=== PATIENT | male | born 2000 | race Caucasian/White ===

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

== ENCOUNTER 2020-02-10 06:37 | Emergency (ER) | payer MEDICAID ==
[2013-05-27 20:45] VITALS: BP 124/82
[2020-02-10] MEDS ORDERED: DUONEB 0.5-3 MG/3 ml Neb IH ONE ×6 (06:49→07:27)
--- NOTE | 2020-02-10 07:13 | ERPHSYRPT ---
- History of Present Illness Time Seen by Provider: 02/10/20 07:10 Source: patient Exam Limitations: no limitations Patient Subjective Stated Complaint: pt states, "I was short of breath last night and coughing. I finally got situated and was able to sleep. I woke up this morning with sob, tried my inhalers and nebulizers but they did not help". Triage Nursing Assessment: pt c/o sob and coughing. Pt has exp wheezes anteriorly and sounds tight anterior and posterior. Pt states, "the sob started last night but got better but he woke up this morning feeling sob and coughing. Pt took both his inhalers and a neb tx with no improvement. pt states he coughed up some blood this morning. Physician History: pt states, "I was short of breath last night and coughing. I finally got situated and was able to sleep. I woke up this morning with sob, tried my inhalers and nebulizers but they did not help". no fever. Timing/Duration: yesterday Activities at Onset: none Severity of Dyspnea-Max: moderate Severity of Dyspnea-Current: moderate Possible Cause: occasional episodes Modifying Factors: Improves With: albuterol nebulizer Associated Symptoms: cough Allergies/Adverse Reactions: No Known Drug Allergies Allergy (Verified 02/10/20 06:53) STATES HE HAS TROUBLE WITH PAIN MEDICINE. MOTHER ADVISES THAT HE NEEDS BENADRYL BEFORE ADMINISTRATION OF ANY PAIN MEDICINE. Home Medications: Albuterol 2.5 mg/3 ml Neb [Proventil 2.5 mg/3 ml Neb] 2 puffs NEB Q4- 6HPRN PRN 02/10/20 [History] Albuterol Sulfate [Proair Hfa] 2 puff IH Q4-6HPRN PRN 02/10/20 [History] Albuterol Sulfate [Ventolin Hfa] 1 neb NEBULIZE Q6HPRN PRN 02/10/20 [History] Omeprazole 20 mg PO DAILY PRN PRN 02/10/20 [History] Hx Tetanus, Diphtheria Vaccination/Date Given: Yes Hx Influenza Vaccination/Date Given: No Hx Pneumococcal Vaccination/Date Given: No Immunizations Up to Date: Yes Travel Risk - International Travel Have you traveled outside of the country in past 3 weeks: No Have you or anyone close to you been diagnosed with or: No Do your reside in a community with a known COVID-19 case?: Yes If Yes where:: [place] - Coronavirus Screening Has patient experienced Coronavirus symptoms: Yes Symptoms experienced: respiratory symptoms (i.e.Cought,shortness of breath) Date of respiratory symptoms onset:: 02/09/20 - Review of Systems Constitutional: No Fever, No Chills Eyes: No Symptoms Ears, Nose, & Throat: No Symptoms Respiratory: Cough, Dyspnea, Wheezing Cardiac: No Chest Pain, No Edema, No Syncope Abdominal/Gastrointestinal: No Abdominal Pain, No Nausea, No Vomiting, No Diarrhea Genitourinary Symptoms: No Dysuria Musculoskeletal: No Back Pain, No Neck Pain Skin: No Rash Neurological: No Dizziness, No Focal Weakness, No Sensory Changes Psychological: No Symptoms Endocrine: No Symptoms All Other Systems: Reviewed and Negative - Past Medical History Pertinent Past Medical History: Yes Neurological History: No Pertinent History ENT History: No Pertinent History Cardiac History: No Pertinent History Respiratory History: Asthma, Bronchitis Endocrine Medical History: No Pertinent History Musculoskeletal History: No Pertinent History GI Medical History: GERD History: No Pertinent History Psycho-Social History: Depression Male Reproductive Disorders: No Pertinent History - Past Surgical History Past Surgical History: Yes Neuro Surgical History: No Pertinent History Cardiac: No Pertinent History Respiratory: No Pertinent History Gastrointestinal: Hernia Repair Genitourinary: No Pertinent History Musculoskeletal: No Pertinent History Male Surgical History: Other Other Surgical History: hernia repair - Social History Smoking Status: Current every day smoker How long have you smoked: 2 yrs Exposure to second hand smoke: Yes Drug Use: none Patient Lives Alone: No - Nursing Vital Signs Nursing Vital Signs: Initial Vital Signs Temperature 98.0 F 02/10/20 06:38 Pulse Rate 111 H 02/10/20 06:38 Respiratory Rate 19 02/10/20 06:38 Blood Pressure 152/103 02/10/20 06:38 O2 Sat by Pulse Oximetry 95 02/10/20 06:38 Pain Scale Pain Intensity 5 - Physical Exam General Appearance: no apparent distress, alert Eye Exam: PERRL/EOMI Neck Exam: normal inspection, supple Respiratory Exam: normal breath sounds Cardiovascular/Chest Exam: normal heart sounds, regular rate/rhythm Abdominal/Gastrointestinal Exam: soft, No tenderness, No distention, No mass Extremity Exam: non-tender, normal range of motion, normal inspection, no calf tenderness, no pedal edema Neurologic Exam: alert, oriented x 3, cooperative, family reunification specialist II-XII nml as tested, sensation nml, No motor deficits Skin Exam: normal color, warm, No dry SpO2 Interpretation: normal SpO2: 95 - Course Nursing assessment & vital signs reviewed: Yes - Radiology Exams Chest X-ray Interpretation: Reviewed by me, Negative Ordered Tests: Active Orders 24 hr Category Date Time Status Isolation, Initiate & Maintain Q4H Care 02/10/20 06:53 Active CHEST 1 VIEW (PORTABLE) Stat Exams 02/10/20 07:08 Taken CBC W DIFF Stat Lab 02/10/20 06:50 Completed CMP Stat Lab 02/10/20 06:49 Completed Respiratory Therapy Assessment DAILY RT 02/10/20 07:15 Completed Medication Summary Discontinued Medications Generic Name Dose Route Start Last Admin Trade Name Freq PRN Reason Stop Dose Admin Albuterol/Ipratropium 3 ml 02/10/20 06:49 02/10/20 07:15 Duoneb 0.5-3 Mg/3 Ml Neb IH 02/10/20 06:50 3 ml STAT ONE Administration Albuterol/Ipratropium Confirm 02/10/20 06:59 Duoneb 0.5-3 Mg/3 Ml Neb Administered 02/10/20 07:00 Dose 3 ml IH .STK-MED ONE Albuterol/Ipratropium Confirm 02/10/20 07:08 Duoneb 0.5-3 Mg/3 Ml Neb Administered 02/10/20 07:09 Dose 3 ml IH .STK-MED ONE Albuterol/Ipratropium Confirm 02/10/20 07:08 Duoneb 0.5-3 Mg/3 Ml Neb Administered 02/10/20 07:09 Dose 3 ml IH .STK-MED ONE Albuterol/Ipratropium 3 ml 02/10/20 07:07 Duoneb 0.5-3 Mg/3 Ml Neb IH 02/10/20 07:08 STAT ONE Lab/Rad Data: Laboratory Result Diagrams 02/10/20 06:50 02/10/20 06:49 Laboratory Results 02/10/20 02/10/20 Range/Units 06:50 06:49 WBC 9.1 (4.0-10.5) K/mm3 RBC 4.91 (4.1-5.6) M/mm3 Hgb 15.1 (12.5-18.0) gm/dl Hct 43.9 (42-50) % MCV 89.4 (78-100) fl MCH 30.8 (26-32) pg MCHC 34.4 (32-36) g/dl RDW 12.5 (11.5-14.0) % Plt Count 272 (150-450) K/mm3 MPV 9.5 (7.5-11.0) fl Gran % 64.5 (36.0-66.0) % Eos # (Auto) 0.43 (0-0.5) Absolute Lymphs (auto) 1.96 (1.0-4.6) Absolute Monos (auto) 0.83 (0.0-1.3) Lymphocytes % 21.5 L (24.0-44.0) % Monocytes % 9.1 (0.0-12.0) % Eosinophils % 4.7 (0.00-5.0) % Basophils % 0.2 (0.0-0.4) % Absolute Granulocytes 5.87 (1.4-6.9) Basophils # 0.02 (0-0.4) Sodium 143 (137-145) mmol/L Potassium 3.8 (3.5-5.1) mmol/L Chloride 106 (98-107) mmol/L Carbon Dioxide 29 (22-30) mmol/L Anion Gap 11.2 (5-15) MEQ/L BUN 14 (9-20) mg/dL Creatinine 0.96 (0.66-1.25) mg/dL Estimated GFR > 60.0 ML/MIN Glucose 98 (74-106) mg/dL Calcium 9.1 (8.4-10.2) mg/dL Total Bilirubin 0.80 (0.2-1.3) mg/dL AST 27 (17-59) U/L ALT 43 (0-50) U/L Alkaline Phosphatase 77 (38-126) U/L Serum Total Protein 7.3 (6.3-8.2) g/dL Albumin 4.5 (3.5-5.0) g/dL - Progress Progress: improved Air Movement: good Blood Culture(s) Obtained: No Antibiotics given: No Counseled pt/family regarding: lab results, diagnosis, need for follow-up, rad results - Departure Departure Disposition: Home Clinical Impression: Acute asthma exacerbation Qualifiers: Asthma severity: mild Asthma persistence: intermittent Qualified Code(s): J45.21 - Mild intermittent asthma with (acute) exacerbation Condition: Stable Critical Care Time: Yes Critical Care Time(excluding separately billable procedures): Critical 30-74 mins Referrals: AWA RODRIGUEZ MD [Primary Care Provider] - Instructions: Asthma, Adult (DC) Additional Instructions: Discharge/Care Plan CANDE HUERTA was seen on 02/10/20 in the Emergency Room. The patient was counseled regarding Diagnosis,Lab results, Imaging studies, need for follow up and when to return to the Emergency Room. Prescriptions given: Discharge Note I have spoken with the patient and/or caregivers. I have explained the patient' s condition, diagnosis and treatment plan based on the information available to me at this time. I have answered the patient's and/or caregiver's questions and addressed any concerns. The patient and/or caregivers have as good understanding of the patient's diagnosis, condition and treatment plan as can be expected at this point. The vital signs have been stable. The patient's condition is stable and appropriate for discharge from the emergency department. The patient will pursue further outpatient evaluation with the primary care physician or other designated or consulting physician as outlined in the discharge instructions. The patient and/or caregivers are agreeable to this plan of care and follow-up instructions have been explained in detail. The patient and/or caregivers have received these instruction. The patient/and or caregivers are aware that any significant change in condition or worsening of symptoms should prompt an immediate return to this or the closest emergency department or call 911. CANDE HUERTA was seen on 02/10/20 n the Emergency Room. At that time you were treated for an emergent condition, during your visit Laboratory, Radiology and/or other procedures may have been ordered. It is very important that you follow-up with your Primary Care Physician AWA RODRIGUEZ within the next 24- 48 hours to review your Emergency Room visit and the final results of testing that was ordered. Some test results such as Urine Cultures, Blood Cultures, and other cultures if ordered will not be finalized for 24-48 hours. If you do not have a Primary Care Provider please call the medical records department at [phone] ext [phone] to obtain a copy of your results or you may sign into our patient portal to obtain these results by visiting us @ [email or web address] and completing the following steps: 1. Click on the Patient Portal link 2. Click the Patient Self Enrollment Link to complete the enrollment form and entering your 3. Once the enrollment form is completed you will receive an email with a temporary ID and password at the email address you provided. 4. Next choose a user name and password. Your user name must be at least 4 characters long and your password must be at least 4 characters long. 5. Choose a security question from the list and provide your answer to the question. If you already have signed into the Health Portal you may access your Health Care Information 26/04 by the following steps: 1. Login to our website @ [email or web address] 2. Enter your original user name and password. FAQS The [facility] Health Portal is an online tool that contains your Lab Results, Radiology Reports, Visit History, Discharge Instructions and Health Summary Lab and Radiology Results will not be available for 72 hours on the portal. The Portal is a secure site, passwords are encryted and URLs are re-written so they cannot be copied and pasted. You and authorized family members are the only ones who can access your Portal. Also there is a timeout feature that protects your information if you leave the Portal page open. If you have technical difficulty please use the Contact Us link on the page this will allow you to submit any questions you have regarding the Portal or you may contact the Medical Record Department at [phone]. Prescriptions: Albuterol/Ipratropium 3ml Neb* [DUONEB 0.5-3 MG/3 ml Neb] 3 ml IH QID #60 ampul.neb Cephalexin Mh 500 mg [Keflex 500 mg] 500 mg PO Q6H #40 capsule Methylprednisolone Packet [Medrol Dosepack] 4 mg PO UD #21 packet
[2020-02-10 07:14] LABS: Absolute Neutrophil Ct (ANC) 5.87 (1.4-6.9); BASOPHIL % 0.2 % (0.0-0.4); Basophil (Absolute #) 0.02 (0-0.4); Eosinophil % 4.7 % (0.00-5.0); Eosinophil (Absolute #) 0.43 (0-0.5); Hematocrit 43.9 % (42-50); Hemoglobin 15.1 gm/dl (12.5-18.0); Lymphocyte (Absolute #) 1.96 (1.0-4.6); Lymphocytes % 21.5 % (24.0-44.0); Mean Cell Volume 89.4 fl (78-100); Mean Corpuscular Hemoglobin 30.8 pg (26-32); Mean Corpuscular Hgb Concent. 34.4 g/dl (32-36); Mean Platelet Volume 9.5 fl (7.5-11.0); Monocyte (Absolute #) 0.83 (0.0-1.3); Monocytes % 9.1 % (0.0-12.0); Neutrophil % 64.5 % (36.0-66.0); Platelet Count 272 K/mm3 (150-450); Red Blood Count 4.91 M/mm3 (4.1-5.6); Red Cell Distribution Width 12.5 % (11.5-14.0); White Blood Count 9.1 K/mm3 (4.0-10.5)
[2020-02-10 07:19] LABS: ALBUMIN 4.5 g/dL (3.5-5.0); ALKALINE PHOSPHATASE 77 U/L (38-126); ANION GAP 11.2 MEQ/L (5-15); BLOOD UREA NITROGEN 14 mg/dL (9-20); CHLORIDE 106 mmol/L (98-107); Calcium 9.1 mg/dL (8.4-10.2); Carbon Dioxide 29 mmol/L (22-30); Creatinine 1 0.96 mg/dL (0.66-1.25); Glucose 98 mg/dL (74-106); Potassium 3.8 mmol/L (3.5-5.1); SGOT/AST 27 U/L (17-59); SGPT/ALT 43 U/L (0-50); SODIUM 143 mmol/L (137-145); Total Protein 7.3 g/dL (6.3-8.2)
[2020-02-10 07:49] VITALS: BP 181/98; PULSE 103; O2SAT 98
--- NOTE | 2020-02-10 09:24 | XRAY ---
Indication: Short of breath. Asthma. Comparison: November 22, 2016. Portable chest demonstrates normal heart, lungs, and bony thorax.
== END 2020-02-10 07:46 | disposition home or self-care (01) ==
LOC: ED 06:37
DX: J45.21 Mild intermittent asthma with (acute) exacerbation (principal); K21.9 Gastro-esophageal reflux disease without esophagitis; F32.9 Major depressive disorder, single episode, unspecified; Z72.0 Tobacco use; Z79.899 Other long term (current) drug therapy
CPT/HCPCS: 36000; 36415; 71045; 80053; 85025; 93005; 94640; 99284; 99291; A9270-GY

== ENCOUNTER 2020-02-10 11:35 | Observation (INO) | payer MEDICAID, OTHER ==
[2020-02-10] MEDS ORDERED: Ativan 2 MG/1 ML VIAL IV PRN (11:40)
[2020-02-10] MEDS ORDERED: solu-MEDROL 40 MG IV SCH (11:45)
[2020-02-10] MEDS ORDERED: DUONEB 0.5-3 MG/3 ml Neb IH ONE (11:45)
--- NOTE | 2020-02-10 11:49 | ERPHSYRPT ---
- History of Present Illness Time Seen by Provider: 02/10/20 11:44 Source: patient Patient Subjective Stated Complaint: 20-year-old male with history of asthma came to the emergency room with shortness of breath. Patient was seen in the emergency room 4 hours ago and was sent home with nebulizer treatment and antibiotic but patient has another episode of severe shortness of breath so she came to the emergency room Physician History: 20-year-old male with history of asthma came to the emergency room with shortness of breath. Patient was seen in the emergency room 4 hours ago and was sent home with nebulizer treatment and antibiotic but patient has another episode of severe shortness of breath so she came to the emergency room Timing/Duration: today Activities at Onset: emotional stress Severity of Dyspnea-Max: moderate Severity of Dyspnea-Current: moderate Possible Cause: frequent episodes Associated Symptoms: wheezing Allergies/Adverse Reactions: No Known Drug Allergies Allergy (Verified 02/10/20 11:38) STATES HE HAS TROUBLE WITH PAIN MEDICINE. MOTHER ADVISES THAT HE NEEDS BENADRYL BEFORE ADMINISTRATION OF ANY PAIN MEDICINE. Home Medications: Albuterol 2.5 mg/3 ml Neb [Proventil 2.5 mg/3 ml Neb] 2 puffs NEB Q4- 6HPRN PRN 02/10/20 [History] Albuterol Sulfate [Proair Hfa] 2 puff IH Q4-6HPRN PRN 02/10/20 [History] Albuterol Sulfate [Ventolin Hfa] 1 neb NEBULIZE Q6HPRN PRN 02/10/20 [History] Omeprazole 20 mg PO DAILY PRN PRN 02/10/20 [History] Hx Tetanus, Diphtheria Vaccination/Date Given: Yes Hx Influenza Vaccination/Date Given: No Hx Pneumococcal Vaccination/Date Given: No Travel Risk - International Travel Have you traveled outside of the country in past 3 weeks: No Have you or anyone close to you been diagnosed with or: No Do your reside in a community with a known COVID-19 case?: Yes - Coronavirus Screening Has patient experienced Coronavirus symptoms: No - Review of Systems Constitutional: No Fever, No Chills Eyes: No Symptoms Ears, Nose, & Throat: No Symptoms Respiratory: Dyspnea, Wheezing, No Cough Cardiac: No Chest Pain, No Edema, No Syncope Abdominal/Gastrointestinal: No Abdominal Pain, No Nausea, No Vomiting, No Diarrhea Genitourinary Symptoms: No Dysuria Musculoskeletal: No Back Pain, No Neck Pain Skin: No Rash Neurological: No Dizziness, No Focal Weakness, No Sensory Changes Psychological: No Symptoms Endocrine: No Symptoms All Other Systems: Reviewed and Negative - Past Medical History Pertinent Past Medical History: Yes Neurological History: No Pertinent History ENT History: No Pertinent History Cardiac History: No Pertinent History Respiratory History: Asthma, Bronchitis Endocrine Medical History: No Pertinent History Musculoskeletal History: No Pertinent History GI Medical History: GERD History: No Pertinent History Psycho-Social History: Depression Male Reproductive Disorders: No Pertinent History - Past Surgical History Past Surgical History: Yes Neuro Surgical History: No Pertinent History Cardiac: No Pertinent History Respiratory: No Pertinent History Gastrointestinal: Hernia Repair Genitourinary: No Pertinent History Musculoskeletal: No Pertinent History Male Surgical History: Other Other Surgical History: hernia repair - Social History Smoking Status: Current every day smoker How long have you smoked: 2 yrs Exposure to second hand smoke: Yes Drug Use: none Patient Lives Alone: No - Physical Exam General Appearance: no apparent distress, alert Eye Exam: PERRL/EOMI Neck Exam: normal inspection, supple Respiratory Exam: wheezing Cardiovascular/Chest Exam: normal heart sounds, regular rate/rhythm Abdominal/Gastrointestinal Exam: soft, No tenderness, No distention, No mass Extremity Exam: non-tender, normal range of motion, normal inspection, no calf tenderness, no pedal edema Neurologic Exam: alert, oriented x 3, cooperative, zinc plate grainer II-XII nml as tested, sensation nml, No motor deficits Skin Exam: normal color, warm, No dry SpO2 Interpretation: normal - Course Nursing assessment & vital signs reviewed: Yes Ordered Tests: Active Orders 24 hr Category Date Time Status Up Ad Adri TOLERATED Activity 02/10/20 11:[address] in Observation ROUTINE Care 02/10/20 11:40 Active Regular Diet Diet 02/10/20 Dinner Active CBC W DIFF AM.LAB Lab 02/11/20 04:00 Ordered CMP AM.LAB Lab 02/11/20 04:00 Ordered Oxygen Nasal Cannula 2 lpm RT 02/10/20 11:40 Active Respiratory Therapy Consult ROUTINE RT 02/10/20 11:40 Active - Progress Progress: unchanged Air Movement: poor Blood Culture(s) Obtained: No Antibiotics given: No Discussed with DrRuth Ann: T.Means, D.Nereida Will see patient in: hospital (observation) Counseled pt/family regarding: lab results, diagnosis, need for follow-up, rad results - Departure Departure Disposition: Observation Clinical Impression: Acute asthma exacerbation Qualifiers: Asthma severity: moderate Asthma persistence: unspecified Qualified Code(s): J45.901 - Unspecified asthma with (acute) exacerbation Condition: Fair Critical Care Time: Yes Critical Care Time(excluding separately billable procedures): Critical 30-74 mins Referrals: AWA RODRIGUEZ MD [Primary Care Provider] - Instructions: Asthma, Adult (DC)
[2020-02-10] MEDS: DUONEB 0.5-3 MG/3 ml Neb IH SCH ×2 (11:51→18:18)
[2020-02-10] MEDS ORDERED: Zithromax 500 MG/ 250 ML NaCl Premix 500 MG/250 ML IVPB IV ONE (11:53)
[2020-02-10] MEDS ORDERED: solu-MEDROL 125 MG ONE (11:53)
[2020-02-10] MEDS ORDERED: Sodium Chloride 0.9% 1000 ML 1,000 ML ONE (11:54)
[2020-02-10] MEDS ORDERED: ROCEPHIN 1 Gm-D5w 50 ml Bag** 1 G/50 ML IVPB IV ONE (11:54)
[2020-02-10] MEDS: Sodium Chloride 0.9% 1000 ML 1,000 ML IV SCH ×2 (11:58→21:52)
[2020-02-10] MEDS: Zithromax 500 MG/ 250 ML NaCl Premix 500 MG/250 ML IVPB IV SCH (12:55)
[2020-02-10] MEDS: solu-MEDROL 40 MG IV SCH (21:31)
[2020-02-10] MEDS ORDERED: Xopenex 1.25 MG/0.5 ML UD NEBULE IH PRN (21:40)
[2020-02-10] MEDS ORDERED: Sodium Chloride 3 ML UD NEBULES IH ONE (21:42)
[2020-02-11] MEDS: DUONEB 0.5-3 MG/3 ml Neb IH SCH ×3 (01:22→10:11)
[2020-02-11] MEDS: solu-MEDROL 40 MG IV SCH (05:58)
[2020-02-11 06:21] LABS: Absolute Neutrophil Ct (ANC) 20.09 (1.4-6.9); Basophil (Absolute #) 0.01 (0-0.4); Eosinophil (Absolute #) 0.01 (0-0.5); Hemoglobin 15.2 gm/dl (12.5-18.0); Lymphocyte (Absolute #) 0.88 (1.0-4.6); Mean Cell Volume 89.4 fl (78-100); Mean Corpuscular Hemoglobin 30.9 pg (26-32); Mean Corpuscular Hgb Concent. 34.5 g/dl (32-36); Mean Platelet Volume 9.5 fl (7.5-11.0); Monocyte (Absolute #) 0.88 (0.0-1.3); Platelet Count 292 K/mm3 (150-450); Red Blood Count 4.92 M/mm3 (4.1-5.6); Red Cell Distribution Width 12.8 % (11.5-14.0); White Blood Count 21.9 K/mm3 (4.0-10.5)
[2020-02-11 06:31] LABS: ALBUMIN 4.6 g/dL (3.5-5.0); ALKALINE PHOSPHATASE 79 U/L (38-126); BLOOD UREA NITROGEN 13 mg/dL (9-20); CHLORIDE 106 mmol/L (98-107); Calcium 9.6 mg/dL (8.4-10.2); Carbon Dioxide 24 mmol/L (22-30); Creatinine 1 0.73 mg/dL (0.66-1.25); Glucose 113 mg/dL (74-106); Potassium 4.3 mmol/L (3.5-5.1); SGOT/AST 28 U/L (17-59); SGPT/ALT 38 U/L (0-50); SODIUM 141 mmol/L (137-145); Total Protein 7.6 g/dL (6.3-8.2)
[2020-02-11] MEDS ORDERED: Sodium Chloride 3 ML UD NEBULES IH PRN (07:12)
[2020-02-11] MEDS: Sodium Chloride 0.9% 1000 ML 1,000 ML IV SCH (07:59)
[2020-02-11] MEDS ORDERED: ROCEPHIN 1 Gm-D5w 50 ml Bag** 1 G/50 ML IVPB IV SCH ×2 (10:00)
--- NOTE | 2020-02-11 10:43 | PCM.SSS ---
History of Present Illness - Chief Complaint Chief Complaint: Acute asthma exacerbation History of Present Illness: is a 20 year old male with hx of asthma diagnosed in childhood and controlled by rescue inhaler seen and examined this am. Patient reports he went to ER x2 yesterday. He reports initially he went to ER was given treatment and sent home with scripts for medications for his asthma. He was able to get his medications but started to have worsening symptoms and could not breath. He returned to ER and received anxiety medication and breathing treatments and started to improve. Patient reports that he has done better overnight. He denies shortness of breath at this time. He reports that he had been diagnosed recently with bronchitis and was supposed to take a zpac but he did not finish the entire antibiotic because he started feeling better. He also reports he did better with duonebs as opposed to just the albuterol inhaler. 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 Patient also states he has seasonal allergies and possible pet dander allergies and reports he has been around cats recently. He denies having any recent hospital admissions for asthma exacerbation. - Review of Systems Constitutional: No Fever, No Chills Eyes: No Symptoms Ears, Nose, & Throat: Other (Sore in nose from oxygen tubing) Respiratory: Cough (productive now but was dry cough), Short Of Breath (Improved ), Wheezing (Improved) Cardiac: No Chest Pain, No Edema Abdominal/Gastrointestinal: No Abdominal Pain, No Nausea, No Vomiting, No Diarrhea Musculoskeletal: Back Pain Neurological: No Headache Psychological: Drug Abuse (Just got out of rehab a few days ago), Depression ( Not at this time), No Alcohol Abuse, No Anxiety, No Suicidal Ideations, No Homicidal Ideations Hematologic/Lymphatic: No Symptoms Immunological/Allergic: Other (Seasonal and pet dander) Medications & Allergies Home Medications: Home Medication List Albuterol 2.5 mg/3 ml Neb [Proventil 2.5 mg/3 ml Neb] 2 puffs NEB Q4- 6HPRN PRN 02/10/20 [History Confirmed 02/10/20] Albuterol Sulfate [Proair Hfa] 2 puff IH Q4-6HPRN PRN 05/09/20 [History Confirmed 02/10/20] Albuterol Sulfate [Ventolin Hfa] 1 neb NEBULIZE Q6HPRN PRN 02/10/20 [History Confirmed 02/10/20] Albuterol/Ipratropium 3ml Neb* [DUONEB 0.5-3 MG/3 ml Neb] 3 ml IH QID #60 ampul.neb 02/10/20 [Rx Confirmed 02/10/20] Cephalexin Mh 500 mg [Keflex 500 mg] 500 mg PO Q6H #40 capsule 02/10/20 [Rx Confirmed 02/10/20] Methylprednisolone Packet [Medrol Dosepack] 4 mg PO UD #21 packet [Rx Confirmed 02/10/20] Omeprazole 20 mg PO DAILY PRN PRN 02/10/20 [History Confirmed 02/10/20] Budesonide/Formoterol Fumarate [Symbicort 160-4.5 Mcg Inhaler] 10.2 gm IH BID 30 Days #1 hfa.aer.ad 02/11/20 [Rx] Montelukast Sodium [Singulair] 10 mg PO DAILY #30 tablet 02/11/20 [Rx] Nicotine 21 mg [Nicoderm CQ 21 MG] 21 mg TD DAILY #30 patch 02/11/20 [Rx] Allergies/Adverse Reactions: Allergies Allergy/AdvReac Type Severity Reaction Status Date / Time No Known Drug Allergies Allergy Verified 02/10/20 11:38 - Past Medical History Past Medical History: Yes Neurological History: No Pertinent History ENT History: No Pertinent History Cardiac History: No Pertinent History Respiratory History: Asthma, Bronchitis Endocrine Medical History: No Pertinent History Musculoskelatal History: No Pertinent History GI Medical History: GERD History: No Pertinent History Pyscho-Social History: Depression Male Reproductive Disorders: No Pertinent History - Past Surgical History Past Surgical History: Yes Neuro Surgical History: No Pertinent History Cardiac History: No Pertinent History Respiratory Surgery: No Pertinent History GI Surgical History: Hernia Repair Genitourinary Surgical Hx: No Pertinent History Musculskeletal Surgical Hx: No Pertinent History Male Surgical History: Other Other Surgical History: hernia repair - Social History Smoking Status: Former smoker How long have you smoked: 2 yrs Exposure to second hand smoke: Yes Alcohol: None Drug Use: other - Physical Exam Vital Signs: Vital Signs - 24 hr Temp Pulse Resp BP Pulse Ox 02/11/20 10:11 100 H 18 95 02/11/20 08:00 98.2 F 95 H 14 137/78 95 02/11/20 06:27 112 H 18 94 L 02/11/20 04:15 97.4 F 132 H 18 118/56 93 L 02/11/20 01:22 122 H 20 92 L 02/10/20 23:26 98.2 F 121 H 18 121/56 92 L 02/10/20 21:43 93 H 18 95 02/10/20 19:39 97.6 F 120 H 20 125/60 95 02/10/20 18:18 132 H 20 96 02/10/20 16:00 98.2 F 120 H 18 146/69 94 L 02/10/20 13:07 98.9 F 89 18 134/64 97 02/10/20 12:48 89 18 97 02/10/20 12:47 98.9 F 133 H 18 134/64 97 02/10/20 11:52 127 H 22 96 02/10/20 11:35 98 F 110 H 22 96 General Appearance: no apparent distress, other (anxious) Neurologic Exam: alert, oriented x 3, cooperative, normal mood/affect, nml station & gait, other (mildly pressured speech and slight speech impediment), No motor deficits Eye Exam: eyes nml inspection Ears, Nose, Throat Exam: moist mucous membranes Neck Exam: normal inspection Cardiovascular Exam: regular rate/rhythm, normal heart sounds, No murmur, No friction rub, No gallop Gastrointestinal/Abdomen Exam: soft, normal bowel sounds, No tenderness, No mass Rectal Exam: not done Back Exam: normal inspection Extremity Exam: normal inspection Skin Exam: normal color, warm, dry, No rash Results - Labs Lab/Micro Results: Lab Results-Last 24 Hours 02/11/20 02/11/20 Range/Units 05:50 05:50 WBC 21.9 H (4.0-10.5) K/mm3 RBC 4.92 (4.1-5.6) M/mm3 Hgb 15.2 (12.5-18.0) gm/dl Hct 44.0 (42-50) % MCV 89.4 (78-100) fl MCH 30.9 (26-32) pg MCHC 34.5 (32-36) g/dl RDW 12.8 (11.5-14.0) % Plt Count 292 (150-450) K/mm3 MPV 9.5 (7.5-11.0) fl Gran % 92.0 H (36.0-66.0) % Eos # (Auto) 0.01 (0-0.5) Absolute Lymphs (auto) 0.88 L (1.0-4.6) Absolute Monos (auto) 0.88 (0.0-1.3) Lymphocytes % 4.0 L (24.0-44.0) % Monocytes % 4.0 (0.0-12.0) % Eosinophils % 0.0 (0.00-5.0) % Basophils % 0.0 (0.0-0.4) % Absolute Granulocytes 20.09 H (1.4-6.9) Basophils # 0.01 (0-0.4) Sodium 141 (137-145) mmol/L Potassium 4.3 (3.5-5.1) mmol/L Chloride 106 (98-107) mmol/L Carbon Dioxide 24 (22-30) mmol/L Anion Gap 15.0 (5-15) MEQ/L BUN 13 (9-20) mg/dL Creatinine 0.73 (0.66-1.25) mg/dL Estimated GFR > 60.0 ML/MIN Glucose 113 H (74-106) mg/dL Calcium 9.6 (8.4-10.2) mg/dL Total Bilirubin 0.90 (0.2-1.3) mg/dL AST 28 (17-59) U/L ALT 38 (0-50) U/L Alkaline Phosphatase 79 (38-126) U/L Serum Total Protein 7.6 (6.3-8.2) g/dL Albumin 4.6 (3.5-5.0) g/dL - Other Procedures and Tests Respiratory Therapy 02/10/20 11:40 Oxygen Nasal Cannula 2 lpm 02/10/20 12:42 Respiratory Therapy Assessment DAILY Assessment/Plan (1) Acute asthma exacerbation Current Visit: Yes Status: Acute Qualifiers: Asthma severity: moderate Asthma persistence: unspecified Qualified Code( s): J45.901 - Unspecified asthma with (acute) exacerbation Assessment & Plan: Patient was in ER x2 and was then admitted for asthma exacerbation. He is sating wnl and not requiring oxygen at this time. He has been getting breathing treatments and tolerating well. He will go home on duonebs, steroids and antibiotics. Plan to start him on symbicort and singulair. Patient will need to follow up with PCP in one week. (2) Tobacco use disorder Current Visit: Yes Status: Acute Assessment & Plan: Patient smokes 1 ppd. Will continue on nicotine patch Code(s): F17.200 - NICOTINE DEPENDENCE, UNSPECIFIED, UNCOMPLICATED Hospital Summary - Hospital Course Hospital Course: 20 yr old male seen x2 in ER for asthma exacerbation. After second time in ER patient required benzo, breathing tx and steroids to get his respiratory status under control. Patient at that time agreed to stay and be admitted. He was admitted to med/surg for obs. He was started on duonebs, steroids and antibiotics. He was requiring oxygen by nasal cannula. Patient started to have improvement of symptoms and was no longer requiring oxygen. Patient was sating wnl. Patient will be discharged today with plans to follow up with his PCP in one week - Vitals & Intake/Output Vital Signs: Vital Signs Temperature 98.2 F 02/11/20 08:00 Pulse Rate 100 H 02/11/20 10:11 Respiratory Rate 18 02/11/20 10:11 Blood Pressure 137/78 02/11/20 08:00 O2 Sat by Pulse Oximetry 95 02/11/20 10:11 Intake & Output: Intake & Output 02/08/20 02/09/20 02/10/20 02/11/20 11:59 11:59 11:59 11:59 Intake Total 3569 Balance 3569 Weight 101.605 kg 100.9 kg - Lab Result Diagrams: 02/11/20 05:50 02/11/20 05:50 Lab Results-Last 24 Hrs: Lab Results-Last 24 Hours 02/11/20 02/11/20 Range/Units 05:50 05:50 WBC 21.9 H (4.0-10.5) K/mm3 RBC 4.92 (4.1-5.6) M/mm3 Hgb 15.2 (12.5-18.0) gm/dl Hct 44.0 (42-50) % MCV 89.4 (78-100) fl MCH 30.9 (26-32) pg MCHC 34.5 (32-36) g/dl RDW 12.8 (11.5-14.0) % Plt Count 292 (150-450) K/mm3 MPV 9.5 (7.5-11.0) fl Gran % 92.0 H (36.0-66.0) % Eos # (Auto) 0.01 (0-0.5) Absolute Lymphs (auto) 0.88 L (1.0-4.6) Absolute Monos (auto) 0.88 (0.0-1.3) Lymphocytes % 4.0 L (24.0-44.0) % Monocytes % 4.0 (0.0-12.0) % Eosinophils % 0.0 (0.00-5.0) % Basophils % 0.0 (0.0-0.4) % Absolute Granulocytes 20.09 H (1.4-6.9) Basophils # 0.01 (0-0.4) Sodium 141 (137-145) mmol/L Potassium 4.3 (3.5-5.1) mmol/L Chloride 106 (98-107) mmol/L Carbon Dioxide 24 (22-30) mmol/L Anion Gap 15.0 (5-15) MEQ/L BUN 13 (9-20) mg/dL Creatinine 0.73 (0.66-1.25) mg/dL Estimated GFR > 60.0 ML/MIN Glucose 113 H (74-106) mg/dL Calcium 9.6 (8.4-10.2) mg/dL Total Bilirubin 0.90 (0.2-1.3) mg/dL AST 28 (17-59) U/L ALT 38 (0-50) U/L Alkaline Phosphatase 79 (38-126) U/L Serum Total Protein 7.6 (6.3-8.2) g/dL Albumin 4.6 (3.5-5.0) g/dL - Procedures and Test Procedures and Tests throughout Hospitalization: Therapy Orders & Screens 02/10/20 11:40 Oxygen Nasal Cannula 2 lpm Comment: 02/10/20 11:51 Respiratory Therapy Assessment DAILY Comment: Diagnosis: acute exacerbation of Asthma 02/10/20 12:42 Respiratory Therapy Assessment DAILY Comment: Diagnosis: acute exacerbation of Asthma 02/10/20 13:35 RT Screen per Nursing Assess ONCE Comment: Protocol Order Physician Instructions: Greater than 3 points order RT Admission Screen Reason For Exam: Triggered on Admission Diagnosis: Acute asthma exacerbation Diagnosis: Acute asthma exacerbation Pneumonia: No Home O2: No Asthma: Yes CHF: No Home CPAP/BIPAP: No Home Nebs/MDI: Yes Total Points: 9 - Discharge Disposition: Home, Self-Care Condition: Stable Prescriptions: New Montelukast Sodium [Singulair] 10 mg PO DAILY #30 tablet Budesonide/Formoterol Fumarate [Symbicort 160-4.5 Mcg Inhaler] 10.2 gm IH BID 30 Days #1 hfa.aer.ad Nicotine 21 mg [Nicoderm CQ 21 MG] 21 mg TD DAILY #30 patch Continue Omeprazole 20 mg PO DAILY PRN PRN PRN Reason: Stomach Upset Albuterol Sulfate [Ventolin Hfa] 1 neb NEBULIZE Q6HPRN PRN PRN Reason: Shortness Of Breath Albuterol Sulfate [Proair Hfa] 2 puff IH Q4-6HPRN PRN PRN Reason: Shortness Of Breath Albuterol 2.5 mg/3 ml Neb [Proventil 2.5 mg/3 ml Neb] 2 puffs NEB Q4- 6HPRN PRN PRN Reason: Shortness Of Breath Albuterol/Ipratropium 3ml Neb* [DUONEB 0.5-3 MG/3 ml Neb] 3 ml IH QID #60 ampul.neb Cephalexin Mh 500 mg [Keflex 500 mg] 500 mg PO Q6H #40 capsule Methylprednisolone Packet [Medrol Dosepack] 4 mg PO UD #21 packet Additional Instructions: Patient is to take his antibiotic, duonebs and steroids as instructed. He can start singulair now. He can start symbicort after he is no longer using the duonebs. He will take symbicort twice daily Follow up with: AWA RODRIGUEZ MD [Primary Care Provider] - 1 Week
[2020-02-11] MEDS: Zithromax 500 MG/ 250 ML NaCl Premix 500 MG/250 ML IVPB IV SCH (10:58)
[2020-02-11] MEDS ORDERED: NON-FORMULARY ITEM (Omeprazole [Omeprazole] 20 MG) PO PRN (11:51)
[2020-02-11] MEDS ORDERED: Ventolin Hfa MDI IH PRN (11:51)
[2020-02-11] MEDS ORDERED: Protonix 40MG Tablet PO PRN (11:53)
[2020-02-11] MEDS ORDERED: VENTOLIN COMMON CANISTER IH PRN (11:55)
[2020-02-11] MEDS ORDERED: Medrol Dosepack PO SCH (12:00)
[2020-02-11 12:25] VITALS: BP 134/80; PULSE 103; O2SAT 94
[2020-02-11] MEDS ORDERED: DUONEB 0.5-3 MG/3 ml Neb IH SCH (13:00)
[2020-02-11] MEDS ORDERED: KEFLEX 500 MG PO SCH (18:00)
== END 2020-02-11 12:30 | disposition home or self-care (01) ==
LOC: ED 11:35 → MED SURG 11:54
PROVIDERS: ADMIT Family Medicine; ATTEND Family Medicine
DX: J45.901 Unspecified asthma with (acute) exacerbation (principal); Z79.899 Other long term (current) drug therapy; F17.200 Nicotine dependence, unspecified, uncomplicated
CPT/HCPCS: 36415; 80053; 85025; 93005; 94640; 94760; 96374; 99291; G0378; 36000; 71045; 99284; 99285; J0456; J0696; J2060; J2920; J2930; A9270-GY

== ENCOUNTER 2023-10-07 17:22 | Emergency (ER) | payer MEDICAID ==
[2023-10-07 18:08] VITALS: BP 136/79; PULSE 126; RESP 20; TEMP 98.4; O2SAT 96
--- NOTE | 2023-10-07 18:49 | ERPHSYRPT ---
- History of Present Illness Time Seen by Provider: 10/07/23 18:00 Source: patient, other Exam Limitations: no limitations (Give him another) Patient Subjective Stated Complaint: Bites all over body Triage Nursing Assessment: Patient ambulated back to ED and transferred self to bed. Patient A+O X 3. Patient's skin pink, warm and dry. Patient complains of bites to entire body that started around 10 months ago. Patient concerned he has scabies or some type of worm crawling in his skin. Patient denies pain or discomfort. Patient has an abrasion type skin area to right side of neck only. Patient has hx of meth use. Physician History: This is a 23-year-old white male patient who states over the last 10 or 11 months he has noticed "bites on his skin. He states that he thinks there are parasites or worms. He has even removed them from his skin. They are long and fiber like is his description. Patient is on medications for GERD and asthma. He denies illicit drug use. He denies any psychiatric medical issues. He has no known drug allergies. He states that he forgot to bring the "worm" to the visit today. Patient states that he is also worried about the "clap" (gonorrhea). He has not had any penile discharge Timing/Duration: other (Present intermittently over the last several months (approximately 10 or 11 months)) Quality: itchy Severity: mild Location: other (Generalized body but primarily in the neck, hairline and scalp) Possible Causes: no cause identified Associated Symptoms: denies symptoms Allergies/Adverse Reactions: No Known Drug Allergies Allergy (Verified 10/07/23 17:45) STATES HE HAS TROUBLE WITH PAIN MEDICINE. MOTHER ADVISES THAT HE NEEDS BENADRYL BEFORE ADMINISTRATION OF ANY PAIN MEDICINE. Home Medications: Albuterol 2.5 mg/3 ml Neb [Proventil 2.5 mg/3 ml Neb] 2 puffs NEB Q4-6HPRN PRN 02/10/20 [History] Albuterol Sulfate [Proair Hfa] 2 puff IH Q4-6HPRN PRN 02/10/20 [History] Albuterol Sulfate [Ventolin Hfa] 1 neb NEBULIZE Q6HPRN PRN 02/10/20 [History] Omeprazole 20 mg PO DAILY PRN PRN 02/10/20 [History] Hx Tetanus, Diphtheria Vaccination/Date Given: Yes Hx Influenza Vaccination/Date Given: No Hx Pneumococcal Vaccination/Date Given: No Immunizations Up to Date: Yes Travel Risk - International Travel Have you traveled outside of the country in past 3 weeks: No - Coronavirus Screening Are you exhibiting any of the following symptoms?: No Close contact with a COVID-19 positive Pt in past 14-21 Days: No - Vaccine Status Have you recieved a Covid-19 vaccination: No - Review of Systems Constitutional: No Symptoms Eyes: No Symptoms Ears, Nose, & Throat: No Symptoms Respiratory: No Symptoms Cardiac: No Symptoms Abdominal/Gastrointestinal: No Symptoms Genitourinary Symptoms: No Symptoms Musculoskeletal: No Symptoms Skin: Other (Eschars present. Right posterior neck area of eschar that is red. No abscess present.) Neurological: No Symptoms Psychological: No Symptoms Endocrine: No Symptoms Hematologic/Lymphatic: No Symptoms Immunological/Allergic: No Symptoms All Other Systems: Reviewed and Negative - Past Medical History Pertinent Past Medical History: Yes Neurological History: No Pertinent History ENT History: No Pertinent History Cardiac History: No Pertinent History Respiratory History: Asthma, Bronchitis Endocrine Medical History: No Pertinent History Musculoskeletal History: No Pertinent History GI Medical History: GERD History: No Pertinent History Psycho-Social History: Depression Male Reproductive Disorders: No Pertinent History - Past Surgical History Past Surgical History: Yes Neuro Surgical History: No Pertinent History Cardiac: No Pertinent History Respiratory: No Pertinent History Gastrointestinal: Hernia Repair Genitourinary: No Pertinent History Musculoskeletal: No Pertinent History Male Surgical History: Other Other Surgical History: hernia repair - Social History Smoking Status: Former smoker How long have you smoked: 2 yrs Exposure to second hand smoke: Yes Drug Use: marijuana, methamphetamines, other Patient Lives Alone: No - Nursing Vital Signs Nursing Vital Signs: Initial Vital Signs Temperature 98.4 F 10/07/23 17:47 Pulse Rate 126 H 10/07/23 17:47 Respiratory Rate 20 10/07/23 17:47 Blood Pressure 136/79 10/07/23 17:47 O2 Sat by Pulse Oximetry 96 10/07/23 17:47 Pain Scale Pain Intensity 0 - Physical Exam General Appearance: no apparent distress, alert, anxiety Eye Exam: PERRL/EOMI, eyes nml inspection Ears, Nose, Throat Exam: normal ENT inspection, moist mucous membranes Neck Exam: normal inspection, non-tender, supple, full range of motion Respiratory Exam: No chest tenderness, No respiratory distress Gastrointestinal/Abdomen Exam: No tenderness Rectal Exam: not done Back Exam: normal inspection, normal range of motion, No CVA tenderness, No vertebral tenderness Extremity Exam: normal inspection, normal range of motion, pelvis stable Neurologic Exam: alert, oriented x 3, cooperative, [employer] child [employer] II-XII nml as tested, normal mood/affect, nml cerebellar function, nml station & gait, sensation nml Skin Exam: other (Eschar present in the area where this patient has been picking and scratching these "worms, parasites") Lymphatic Exam: No adenopathy SpO2 Interpretation: normal SpO2: 96 O2 Delivery: Room Air - Course Nursing assessment & vital signs reviewed: Yes Ordered Tests: Active Orders 24 hr Category Date Time Status CULTURE,URINE Stat Lab 10/07/23 18:30 Received UA W/RFX UR CULTURE Stat Lab 10/07/23 18:30 Completed Lab/Rad Data: Laboratory Results 10/07/23 Range/Units 18:30 Urine Color Yellow (Yellow) Urine Appearance Cloudy A (Clear) Urine pH 6.5 (4.6-8.0) Ur Specific [place] >=1.030 A (1.005-1.030) Urine Protein 30 (Negative) Urine Glucose (UA) Negative (Negative) mg/dL Urine Ketones Trace A (Negative) Urine Blood Negative (Negative) Urine Nitrite Negative (Negative) Urine Bilirubin Negative (Negative) Urine Urobilinogen 1.0 A (0.2) mg/dL Ur Leukocyte Esterase Moderate A (Negative) U Hyaline Cast (Auto) 3-5 A (0-2) /LPF Urine Microscopic RBC 0-2 (0-5) /HPF Urine Microscopic WBC >100 A (0-5) /HPF Ur Epithelial Cells None Seen (None Seen) /HPF Urine Bacteria None Seen (None Seen) /HPF Urine Culture Reflexed YES (NO) - Progress Progress: unchanged Progress Note: 10/07/23 18:51 This patient's medical issue is 1 of low complexity. Level complex in the workup performed is based on review of the patient's past medical history, review the patient's medication list, review of patient's drug allergy list, history of present illness and physical findings on examination. The workup in this patient includes a urinalysis with urine GC/chlamydia testing. The plan would be to place the patient on steroids and an antibiotic. We will wait to determine which outpatient antibiotics the patient will be placed on pending the urine studies. 10/07/23 19:09 The testing results have not returned. However, the patient is leaving AGAINST MEDICAL ADVICE. He is aware that he may have an acute, emergent medical issue and understands. He is awake alert he is oriented and he desires to leave. He will sign the AMA form. Counseled pt/family regarding: diagnosis, need for follow-up Medical Desision Making - Independent Historian Additional History obtained from: Relative/friend - Diagnostic Testing Diagnostic test were ordered, analyzed, and reviewed by me: Yes - Risk of complications The pt has a mod risk of morbidity or mortality based on: Need for prescription drug management - Departure Departure Disposition: AMA Clinical Impression: Morgellons disease, Cellulitis of neck Condition: Stable Critical Care Time: No Referrals: AWA RODRIGUEZ MD [Primary Care Provider] - Follow up/PCP as directed Additional Instructions: Do not scratch your skin. Follow-up with your outpatient provider for further evaluation management. Make sure you return the specimen you claim is under your skin to your primary care provider or the emergency department so we can send this into the lab for assessment.
[2023-10-07 18:57] LABS: Appearance Cloudy (Clear); Bacteria None Seen /HPF (None Seen); Bilirubin Negative (Negative); Blood Negative (Negative); Epithelial Cells None Seen /HPF (None Seen); Glucose, Urine Negative (Negative); Ketones Trace (Negative); Leukocyte Esterase Moderate (Negative); Nitrite Negative (Negative); Ph 6.5 (4.6-8.0); Protein,Urine Dip 30 (Negative); RBC 0-2 /HPF (0-5); Specific Gravity >=1.030 (1.005-1.030); WBC >100 /HPF (0-5)
[2023-10-07 18:58] LABS: ADD URINE CULTURE? YES (NO)
[2023-10-07 20:20] LABS: CHLAMYDIA DNA DETECTED (NEGATIVE); GC DNA Probe DETECTED (NEGATIVE)
== END 2023-10-07 19:09 | disposition left against medical advice (07) ==
LOC: ED 17:22
DX: L98.8 Other specified disorders of the skin and subcutaneous tissue (principal); L03.221 Cellulitis of neck; Z79.899 Other long term (current) drug therapy; Z28.310 Unvaccinated for COVID-19
CPT/HCPCS: 81001; 87086; 87491; 87591; 99282

== ENCOUNTER 2025-06-16 00:23 | Emergency (ER) | payer OTHER ==
[2025-06-16] MEDS ORDERED: Augmentin 875-125 Tablet ONE (00:57)
[2025-06-16] MEDS ORDERED: NORCO 5/325 MG ONE (00:57)
[2025-06-16] MEDS ORDERED: Adacel Vial IM ONE (00:57)
[2025-06-16] MEDS: Adacel Vial IM ONE (00:58)
[2025-06-16] MEDS: Augmentin 875-125 Tablet PO ONE (00:59)
[2025-06-16] MEDS: NORCO 5/325 MG PO ONE (01:00)
[2025-06-16] MEDS: Rabavert 2.5 UNITS IM ONE (01:17)
--- NOTE | 2025-06-16 01:23 | ERPHSYRPT ---
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 pt states that a friend was checking on the dog for someone, reports that when they arrived the dog was tangled in its chain, pt reports his friend worked to untangle the dog and after removing its chain the dog attacked him. pt reports he does not know the electrician rectifier maintenance of the dog or its vaccination status. Triage Nursing Assessment: pt is aox3, pupils perrl, afebrile, resps easy and non labored, cap refill < 3 seconds, radial pulses strong and equal, pt skin pink warm dry. pt with superficial scratches to the chest and bilateral arms. pt has an approx 3cm laceration to the right fifth digit and an approx 2cm laceration to the right thumb. pt has an approx 2cm laceration to the left wrist. Physician History: 25-year-old male presents to the emergency room bilateral upper extremity injury status post being attacked by dog patient reports the dog was his neighbors unknown vaccine history patient reports this occurred just prior to arrival patient is unsure about his tetanus vaccine history patient reports no other injuries but his upper extremities are hurting now in ED for further eval Allergies/Adverse Reactions: No Known Drug Allergies Allergy (Verified 10/07/23 17:45) STATES HE HAS TROUBLE WITH PAIN MEDICINE. MOTHER ADVISES THAT HE NEEDS BENADRYL BEFORE ADMINISTRATION OF ANY PAIN MEDICINE. Home Medications: Albuterol 2.5 mg/3 ml Neb [Proventil 2.5 mg/3 ml Neb] 2 puffs NEB Q4-6HPRN PRN 02/10/20 [History] Albuterol Sulfate [Proair Hfa] 2 puff IH Q4-6HPRN PRN 02/10/20 [History] Albuterol Sulfate [Ventolin Hfa] 1 neb NEBULIZE Q6HPRN PRN 02/10/20 [History] Omeprazole 20 mg PO DAILY PRN PRN 02/10/20 [History] Hx Tetanus, Diphtheria Vaccination/Date Given: No Hx Influenza Vaccination/Date Given: No Hx Pneumococcal Vaccination/Date Given: No Immunizations Up to Date: No Travel Risk - International Travel Have you traveled outside of the country in past 3 weeks: No - Emerging Infectious Disease Are you exhibiting symptoms associated with any current EIDs: No - Past Medical History Pertinent Past Medical History: Yes Neurological History: No Pertinent History ENT History: No Pertinent History Cardiac History: No Pertinent History Respiratory History: Asthma, Bronchitis Endocrine Medical History: No Pertinent History Musculoskeletal History: No Pertinent History GI Medical History: GERD History: No Pertinent History Psycho-Social History: Depression Male Reproductive Disorders: No Pertinent History - Past Surgical History Past Surgical History: Yes Neuro Surgical History: No Pertinent History Cardiac: No Pertinent History Respiratory: No Pertinent History Gastrointestinal: Hernia Repair Genitourinary: No Pertinent History Musculoskeletal: No Pertinent History Male Surgical History: Other Other Surgical History: hernia repair - Social History Smoking Status: Former smoker How long have you smoked: 2 yrs Exposure to second hand smoke: Yes Drug Use: none - Social Determinants of Health Will the patient participate in the screening: Declined to provide - Nursing Vital Signs Nursing Vital Signs: Initial Vital Signs Temperature 98 F 06/16/25 00:35 Pulse Rate 133 H 06/16/25 00:35 Respiratory Rate 20 06/16/25 00:35 Blood Pressure 154/121 06/16/25 00:35 O2 Sat by Pulse Oximetry 100 06/16/25 00:35 Pain Scale Pain Intensity 10 - Physical Exam General Appearance: alert Eyes, Ears, Nose, Throat Exam: moist mucous membranes Neck Exam: non-tender, supple Cardiovascular/Respiratory Exam: chest non-tender, normal breath sounds, regular rate/rhythm, no respiratory distress Abdominal Exam: non-tender, No guarding Back Exam: normal inspection, other (pt with superficial scratches to the chest and bilateral arms), No vertebral tenderness Elbow/Forearm Exam: soft tissue tenderness, swelling Wrist Exam: abrasions ( pt has an approx 2cm laceration to the left wrist), soft tissue tenderness, swelling Hand Exam: laceration (approx 3cm laceration to the right fifth digit and an approx 2cm laceration to the right thum), soft tissue tenderness, swelling Neuro/Tendon Exam: normal sensation, normal motor functions Mental Status Exam: alert, oriented x 3, cooperative Skin Exam: normal color, warm, dry SpO2 Interpretation: normal SpO2: 100 - Course Nursing assessment & vital signs reviewed: Yes Ordered Tests: Active Orders 24 hr Category Date Time Status Wound Care STAT Care 06/16/25 01:16 Active Medication Summary Discontinued Medications Generic Name Dose Route Start Last Admin Trade Name Freq PRN Reason Stop Dose Admin Hydrocodone Bitart/Acetaminophen 1 tab 06/16/25 00:44 06/16/25 01:00 Hydrocodone/Apap 5/325 1 Tab Tablet PO 06/16/25 00:45 1 tab STAT ONE Administration Hydrocodone Bitart/Acetaminophen Confirm 06/16/25 00:57 Hydrocodone/Apap 5/325 1 Tab Tablet Administered 06/16/25 00:58 Dose 1 tab .ROUTE .STK-MED ONE Amoxicillin/Clavulanate Potassium 875 mg 06/16/25 00:46 06/16/25 00:59 Amox Tr/Potassium Clavulanate 875 Mg Tablet PO 06/16/25 00:47 875 mg STAT ONE Administration Amoxicillin/Clavulanate Potassium Confirm 06/16/25 00:57 Amox Tr/Potassium Clavulanate 875 Mg Tablet Administered 06/16/25 00:58 Dose 875 mg .ROUTE .STK-MED ONE Diphtheria/Tetanus/Acell Pertussis 0.5 ml 06/16/25 00:44 06/16/25 00:58 Tdap --Diph,Pertuss(Acell),Tet Vac/Pf 0.5 Ml Vial IM 06/16/25 00:45 0.5 ml .ONCE ONE Administration Diphtheria/Tetanus/Acell Pertussis Confirm 06/16/25 00:57 Tdap --Diph,Pertuss(Acell),Tet Vac/Pf 0.5 Ml Vial Administered 06/16/25 00:58 Dose 0.5 ml IM .STK-MED ONE Rabies Immune Globulin 1,500 unit 06/16/25 00:44 06/16/25 01:32 Rabies Immune Globulin/Pf 10ml 150 Unit/Ml Vial IM 06/16/25 00:45 Not Given .ONCE ONE Rabies Immune Globulin 1,500 units 06/16/25 01:27 06/16/25 01:29 Rabies Immune Globulin/Pf 1,500 Units/5 Ml Vial IM 06/16/25 01:28 1,500 units ONCE STA Administration Rabies Vaccine 2.5 units 06/16/25 00:44 06/16/25 01:17 Rabies Vac,Pf Chick-Emb Cell 2.5 Units Kit IM 06/16/25 00:45 2.5 units .ONCE ONE Administration - Progress Progress Note: 06/16/25 01:23 Patient was given pain control given Augmentin rabies vaccine as well as immunoglobulin - Departure Departure Disposition: Home Clinical Impression: Dog bite Qualifiers: Encounter type: initial encounter Qualified Code(s): W54.0XXA - Bitten by dog, initial encounter Condition: Stable Critical Care Time: No Referrals: AWA RODRIGUEZ MD [Primary Care Provider, INTERNAL MEDICINE] - Follow up/PCP as directed Instructions: Animal Bites (DC), Rabies Immune Globulin (Human), Rabies Vaccine Additional Instructions: You need to return to complete for vaccines for rabies. Rabies vaccine was given at the time of the first medical visit, and a dose of vaccine will need to be given again on days 3, 7, and 14 after the first dose Prescriptions: Amox Tr/Potass Clav. 875 mg [Augmentin 875-125 Tablet] 875 mg PO BID 10 Days #20 tablet
[2025-06-16] MEDS: HYPERRAB 300 UNIT/ML 5 ML VIAL IM STA (01:29)
[2025-06-16] MEDS: HYPERRAB S-D 1500 IU/10 ML VIAL IM ONE (01:32)
[2025-06-16] MEDS ORDERED: BACIGUENT PACKET ONE (01:53)
[2025-06-16 02:31] VITALS: BP 106/73; PULSE 68; RESP 19; TEMP 98; O2SAT 99
== END 2025-06-16 02:50 | disposition home or self-care (01) ==
LOC: ED 00:23
DX: S61.552A Open bite of left wrist, initial encounter (principal); S61.256A Open bite of right little finger without damage to nail, initial encounter; S61.051A Open bite of right thumb without damage to nail, initial encounter; W54.0XXA Bitten by dog, initial encounter; Z79.899 Other long term (current) drug therapy; Z23 Encounter for immunization